=== PATIENT | male | born 1980 | race Caucasian/White ===

== ENCOUNTER 2016-08-14 23:11 | Emergency (ER) | payer SELFPAY | END 2016-08-15 05:23 | disposition home or self-care (01) | LOC: D.ER 23:11 | DX: S20.212A Contusion of left front wall of thorax, initial encounter (principal); S20.211A Contusion of right front wall of thorax, initial encounter; S40.012A Contusion of left shoulder, initial encounter; V89.2XXA Person injured in unspecified motor-vehicle accident, traffic, initial encounter ==

== ENCOUNTER 2016-10-16 05:14 | Day surgery (SDC) | payer BC ==
[~2016-10-16] VITALS: Ht 185.4 cm; Wt 93.2 kg
[~2016-10-16 05:14] MED LIST: ANORO ELLIPTA1 EACH INH; CELEBREX200 MG PO; PROAIR HFA8.5 GM INH; ULTRAM50 MG PO
[2016-10-16 08:38] VITALS: BP 146/81; Ht 185.4 cm; Wt 93.2 kg
[2016-10-16 08:44] LABS: HEMATOCRIT 48.1 % (42.0-54.0); HEMOGLOBIN 16.2 g/dL (13.5-17.5); MCH 30.4 pg (26.0-34.0); MCHC 33.7 g/dL (31.0-37.0); MCV 90.2 fL (80.0-100.0); MEAN PLATELET VOLUME 10.4 fL (7.4-10.4); RBC 5.33 10x6/uL (4.20-6.10); RDW 13.2 % (11.5-14.5); WBC 7.5 10x3/uL (4.8-10.8)
[2016-10-16 10:01] LABS: UDS - AMPHET POSITIVE QUAL (NEGATIVE); UDS - BARB NEGATIVE QUAL (NEGATIVE); UDS - BENZO POSITIVE QUAL (NEGATIVE); UDS - COCAINE NEGATIVE QUAL (NEGATIVE); UDS - METH NEGATIVE QUAL (NEGATIVE); UDS - OPIATE NEGATIVE QUAL (NEGATIVE); UDS - PCP NEGATIVE QUAL (NEGATIVE); UDS - THC NEGATIVE QUAL (NEGATIVE)
--- NOTE | 2016-10-16 20:25 | NUR ---
1046--PT NODDING OFF, UNABLE TO WAKE, DR WHITE AT BEDSIDE. SURGERY CANECLED AND EXPLAINED TO PT PER DR WHITE. ORDERS RECIEVED TO DC IV AND SCHEDULE FOLLOW UP APPT. DAVID CAMPBELL 1110--IV DC'D. DISCHARGE INSTRUCTIONS GIVEN, PT VERBALIZES UNDERSTANDING. PT OFF UNIT VIA WC. DAVID CAMPBELL
== END 2016-10-16 11:10 | disposition home or self-care (01) ==
LOC: D.OPS 05:14 → D.PAN 07:30 → D.OPS 08:30 → D.PAN 08:30 → D.OPS 09:30
PROVIDERS: Anesthesiology; Orthopaedic Surgery
DX: S43.432A Superior glenoid labrum lesion of left shoulder, initial encounter (principal); Z01.810 Encounter for preprocedural cardiovascular examination; Z01.811 Encounter for preprocedural respiratory examination; Z01.812 Encounter for preprocedural laboratory examination; Z53.9 Procedure and treatment not carried out, unspecified reason

== ENCOUNTER 2018-01-11 23:26 | Emergency (ER) | payer MEDICAID ==
[~2018-01-11] VITALS: Ht 185.4 cm; Wt 104.5 kg
[2018-01-11 23:35] VITALS: Ht 185.4 cm; Wt 104.5 kg
[2018-01-12 00:46] LABS: BASOPHILS 0.1 % (0-2); EOSINOPHILS 1.3 % (0-7); HEMATOCRIT 45.6 % (42.0-54.0); HEMOGLOBIN 15.2 g/dL (13.5-17.5); IMMATURE GRANULOCYTES 0.2 % (0-5); LYMPHOCYTES 13.5 % (15-50); MCH 27.7 pg (26.0-34.0); MCHC 33.3 g/dL (31.0-37.0); MCV 83.1 fL (80.0-100.0); MONOCYTES 7.1 % (2-11); NEUTROPHILS 77.8 % (40-80); PLATELET COUNT 213 10x3/uL (130-400); RBC 5.49 10x6/uL (4.20-6.10); RDW 14.3 % (11.5-14.5); WBC 10.1 10x3/uL (4.8-10.8)
[2018-01-12 01:09] LABS: ALBUMIN 3.2 g/dL (3.4-5.0); ALKALINE PHOSPHATASE 136 U/L (46-116); ALT (SGPT) 25 U/L (10-68); BILIRUBIN - TOTAL 0.23 mg/dL (0.2-1.3); C-REACTIVE PROTEIN 3.1 mg/dL (0.0-0.9); CALC OSMOLALITY 278 mosm/kg (275-300); CALCIUM 8.2 mg/dL (8.5-10.1); CARBON DIOXIDE 25.1 mmol/L (21.0-32.0); CHLORIDE - SERUM 104 mmol/L (98-107); CREATININE - SERUM 0.8 mg/dL (0.6-1.3); GLUCOSE 111 mg/dL (74-106); POTASSIUM - SERUM 3.5 mmol/L (3.5-5.1); PROTEIN - SERUM 7.2 g/dL (6.4-8.2); SODIUM 138 mmol/L (136-145); UREA NITROGEN 17 mg/dL (7-18); eGFR NON AFRICAN AMERICAN > 90 mL/min (90-120)
[2018-01-12] MEDS ORDERED: CLEOCIN HCL300 MG PO (01:40)
[2018-01-12] MEDS ORDERED: KEFLEX500 MG PO (01:40)
[2018-01-12 03:03] VITALS: BP 132/79
== END 2018-01-12 03:05 | disposition home or self-care (01) ==
LOC: D.ER 23:26
PROVIDERS: Family Medicine
DX: L03.115 Cellulitis of right lower limb (principal); J44.9 Chronic obstructive pulmonary disease, unspecified; F17.200 Nicotine dependence, unspecified, uncomplicated

== ENCOUNTER 2018-06-12 11:58 | Emergency (ER) | payer MEDICAID ==
[~2018-06-12] VITALS: Ht 185.4 cm; Wt 113.6 kg
[~2018-06-12 11:58] MED LIST changes: +CLEOCIN HCL300 MG PO; +KEFLEX500 MG PO
[2018-06-12 12:02] VITALS: Ht 185.4 cm; Wt 113.6 kg
[2018-06-12 13:26] LABS: BASOPHILS 0.2 % (0-2); EOSINOPHILS 1.5 % (0-7); HEMATOCRIT 48.2 % (42.0-54.0); HEMOGLOBIN 16.3 g/dL (13.5-17.5); IMMATURE GRANULOCYTES 0.3 % (0-5); LYMPHOCYTES 11.6 % (15-50); MCH 29.4 pg (26.0-34.0); MCHC 33.8 g/dL (31.0-37.0); MCV 86.8 fL (80.0-100.0); MEAN PLATELET VOLUME 10.4 fL (7.4-10.4); MONOCYTES 9.5 % (2-11); NEUTROPHILS 76.9 % (40-80); PLATELET COUNT 195 10x3/uL (130-400); RBC 5.55 10x6/uL (4.20-6.10); RDW 14.6 % (11.5-14.5); WBC 10.7 10x3/uL (4.8-10.8)
[2018-06-12 13:40] LABS: ALBUMIN 3.3 g/dL (3.4-5.0); ALKALINE PHOSPHATASE 132 U/L (46-116); ALT (SGPT) 74 U/L (10-68); BILIRUBIN - TOTAL 0.67 mg/dL (0.2-1.3); C-REACTIVE PROTEIN 4.1 mg/dL (0.0-0.9); CALC OSMOLALITY 275 mosm/kg (275-300); CALCIUM 8.9 mg/dL (8.5-10.1); CARBON DIOXIDE 27.5 mmol/L (21.0-32.0); CHLORIDE - SERUM 103 mmol/L (98-107); CREATININE - SERUM 0.7 mg/dL (0.6-1.3); GLUCOSE 108 mg/dL (74-106); SODIUM 137 mmol/L (136-145); UREA NITROGEN 15 mg/dL (7-18); eGFR NON AFRICAN AMERICAN > 90 mL/min (90-120)
[2018-06-12 15:06] LABS: ERYTHROCYTE SEDIMENTATION RATE 2 mm/hr (0-15)
[2018-06-12] MEDS ORDERED: TORADOL10 MG PO (15:24)
[2018-06-12] MEDS ORDERED: CLEOCIN HCL300 MG PO (15:24)
[2018-06-12 15:54] VITALS: BP 130/78
== END 2018-06-12 15:55 | disposition home or self-care (01) ==
LOC: D.ER 11:58
PROVIDERS: Emergency Medicine
DX: R22.42 Localized swelling, mass and lump, left lower limb (principal); L03.116 Cellulitis of left lower limb